=== PATIENT | female | born 1930 | race Caucasian/White ===

== ENCOUNTER 2016-07-10 07:39 | Day surgery (SDC) | payer MEDICARE, OTHER ==
[2016-07-10] VITALS (8 sets, daily range): BP systolic 150–178; BP diastolic 54–87; PULSE 50–66; RESP 11–21; O2SAT 95–100
[~2016-07-10] VITALS: Ht 160 cm; Wt 64.8 kg
[~2016-07-10 07:39] MED LIST: AMLO5TAB2 PO; ATEN50TA PO; BENA20TA PO; DULO20CA18 PO; HYDR25TA4 PO; Levofloxacin 500 mg/100 mL D5W IV ONE
[2016-07-10] MEDS ORDERED: Propofol 10,000 mCg/mL 20 mL Inj ONE (07:40)
[2016-07-10] MEDS ORDERED: fentaNYL-PF 50 mCg/mL 2 mL Inj ONE (07:40)
--- NOTE | 2016-07-10 07:46 | PCM.HPANE ---
Patient Data Surgeon Admitting Provider: Attending Provider:Skye Jones MD Primary Care Physician:Jeyson Harkins MD Other Provider:[facility] Reason for Visit Mixed Incontinence Ht/WT & BMI Height (Feet): 5 Height (Inches): 2 Weight (Kilograms): 65.952 Body Mass Index 26.00 Allergies Coded Allergies: Penicillins (Verified Allergy, Severe, RASH, 07/05/16) fluoxetine (Verified Allergy, Unknown, UNKNOWN, 07/05/16) buspirone (Verified Adverse Reaction, Severe, BLURRY VISION, 07/05/16) citalopram (Verified Adverse Reaction, Severe, SWEATS & INSOMNIA, 07/05/16) imipramine (Verified Adverse Reaction, Severe, "SWEATS", 07/05/16) sertraline (Verified Adverse Reaction, Severe, SLEEPINESS, 07/05/16) simvastatin (Verified Adverse Reaction, Severe, MYALGIAS, 07/05/16) venlafaxine (Verified Adverse Reaction, Severe, 07/05/16) celecoxib (Verified Adverse Reaction, Unknown, DIDN'T HELP, 07/05/16) Past Anesthesia History Anesthesia History: Denies:: Anesthesia Reactions, Malignant Hyperthermia Diabetes History Hx Diabetes?: No MRSA MRSA: No Medications Hypertension Medication: Yes (AMLODIPINE,BENAZEPRIL,HCTZ) Home Meds Incl Beta Vik: Yes (ATENOLOL) Reported Medications Hydrochlorothiazide 25 Mg [id number] Mg PO DAILY 30 Days Ref 0 07/05/16 Duloxetine 20 Mg Capsule.dr20 Mg PO BID Ref 0 07/05/16 Benazepril 20 Mg [id number] Mg PO BID 07/05/16 Atenolol 50 Mg [id number] Mg PO DAILY #30 TABLET Ref 0 07/05/16 Amlodipine 5 Mg Tablet5 Mg PO DAILY Ref 0 07/05/16 History History of ENT Problems?: No Hx of Heart Problems?: Yes Cardiovascular History: Positive for:: Hypertension Denies:: Heart Murmur Hx of Respiratory Problem?: No Respiratory History: Denies:: Use of C-PAP Machine Hx Neurologic Problems?: No Hx of GI Problems?: No Hx of Problems?: Yes Other Pertinent History: 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 Pressure Ulcers Hx Musculoskeletal Problems?: Yes Musculoskeletal History: Positive for:: Joint Replacement (S/P FINGER JOINT REPLACEMENT) Osteoarthritis Hx of Psycho/Social Problems?: Yes Psycho Social History: Positive for:: Anxiety Hx Depression Hx Surgeries?: Yes (FINGER JOINT REPLACEMENT) Hx Any Other Health Problems?: Yes Other History: Denies:: Cancer Endocrine Disease Hospitalization Thyroid Disease Hx Diabetes: No Have You Smoked inLast 12 mo: No Stop/Bang S-Snoring: Do You Snore Loudly: No T-Tired: feel tired, fatigued: No O-Obsered: Observed not breath: No P-Blood Pressure: treated: Yes B- Body Mass Index > 35 kg/m2: No A- Age over 50: Yes N- Neck Large Circumference: No G- Gender Male: No SHUN Total Score: 2 SHUN Risk Assessment: Low Risk, <3 Yes Risk Assessment Category Category 1A: Patient has history of documented sleep apnea, and HAS NOT received any narcotic, sedative or anesthesia administration during this stay. Category 1B: Patient has history of documented sleep apnea, and HAS received any narcotic , sedative or anesthesia administration during this stay Category 2: Patient has SUSPECTED Obstructive Sleep Apnea, and HAS received any narcotic , sedative or anesthesia administration during this stay. Category 3: Patient has SUSPECTED Obstructive Sleep Apnea and HAS NOT received narcotic, sedative or anesthesia administration during this stay. Category 4: Outpatient in Procedural Areas with known sleep apnea or who screen positive for High Risk via the STOP/BANG questionnaire. Exam Exam General Appearance: Alert, Oriented X3, Cooperative, No Acute Distress HEENT/AIRWAY: MP 2 Lungs: Clear to Auscultation, Normal Air Movement Heart: Exam Unremarkable, Regular Rate/Rhythm, No Murmurs/Rubs/Gallops Plan Impression Patient chart reviewed, patient interviewed and anesthestic plan with risks, benefits, and alternatives discussed, and informed consent obtained. ASA Physical Status: ASA2 Mod Systemic Disease Anesthetic Plan: GA Bene/Risks/Altern/Consents: Yes HP Complete Prior to Induction: Yes Phani Art MD Jul 10, 2016 07:46
[2016-07-10] MEDS: Lactated Ringer's 1,000 ML IV SCH ×2 (08:02→09:40)
[2016-07-10] MEDS ORDERED: Lactated Ringer's 500 ML IV PRN (09:51)
[2016-07-10] MEDS ORDERED: Lactated Ringer's 1,000 ML IV SCH (09:51)
[2016-07-10] MEDS ORDERED: hydrALAZINE 20 mg/mL Inj IVPUSH PRN (09:55)
[2016-07-10] MEDS ORDERED: Atropine 0.4 mg/mL Inj IVPUSH PRN (09:55)
[2016-07-10] MEDS ORDERED: HYDROmorphone 1 mg/mL Inj IVPUSH PRN (09:55)
[2016-07-10] MEDS ORDERED: MetoCLOpramide 5 mg/mL 2 mL Inj IVPUSH PRN (09:55)
[2016-07-10] MEDS ORDERED: Dexamethasone 4 mg/mL Inj IVPUSH PRN (09:55)
[2016-07-10] MEDS ORDERED: EPHEDrine Sulfate 50 mg/mL Inj IVPUSH PRN (09:55)
[2016-07-10] MEDS ORDERED: Labetalol 5 mg/mL 4 mL Inj IV PRN (09:55)
[2016-07-10] MEDS ORDERED: Phenylephrine 10,000 mCg/mL Inj IVPUSH PRN (09:55)
[2016-07-10] MEDS ORDERED: Ondansetron 2 mg/mL 2 mL Inj IVPUSH PRN (09:55)
[2016-07-10] MEDS ORDERED: fentaNYL-PF 50 mCg/mL 2 mL Inj IVPUSH PRN (09:55)
[2016-07-10] MEDS ORDERED: Ondansetron 8 mg ODT Tablet PO PRN (10:20)
[2016-07-10] MEDS ORDERED: HYDROcodone-APAP 5-325 mg Tablet PO PRN (10:20)
[2016-07-10] MEDS ORDERED: Phenazopyridine 97.5 mg Tablet PO ONE (10:20)
--- NOTE | 2016-07-10 10:53 | PCM.ANEP1 ---
Post Anesthesia Phase 1 PACU Phase 1 Assessment Vital Signs Vital Signs Date Time Temp Pulse Resp B/P Pulse Ox O2 Delivery O2 Flow Rate FiO2 07/10/16 10:42 36.1 62 12 150/73 96 Room Air 07/10/16 10:35 36.4 61 13 158/71 97 Room Air 07/10/16 10:30 61 12 155/87 98 Room Air 07/10/16 10:26 62 11 160/67 100 Room Air 07/10/16 10:20 62 15 160/66 99 Room Air 07/10/16 10:18 36.1 66 21 157/73 97 Simple Mask 8 07/10/16 08:03 36.0 50 15 152/54 95 Room Air Anesthetic Administered: GA Level of Alertness: Awake, talking ALEJANDRO's with Equal Strength: Yes Pain: No Nausea or Vomiting: No Lungs: Clear to Auscultation, Normal Air Movement Phani Art MD Jul 10, 2016 10:53
--- NOTE | 2016-07-10 12:36 | PCM.ANEP2 ---
Post Anesthesia Evaluation ASA/CMS Post Anesthesia VS in Patient's Normal Range?: Yes Resp Stable; Airway Patent?: Yes CV Function & Hydration Stable: Yes Mental Status Recovered?: Yes Pain control Satisfactory?: Yes N/V Control Satisfactory?: Yes Phani Art MD Jul 10, 2016 12:36
--- NOTE | 2016-07-11 13:34 | OP ---
[address] [address] OPERATIVE REPORT PATIENT: KARLY HERNANDEZ : 1930 MR#: [id number] ADMIT: 07/10/2016 JOB ID: [id number] DATE OF SURGERY: 07/10/2016 PREOPERATIVE DIAGNOSIS(ES): POSTOPERATIVE DIAGNOSIS(ES): DATE OF SERVICE: 07/10/2016 PROCEDURE: Cystoscopy with Macroplastique injection into the urethra. SURGEON: Skye Jones MD ANESTHESIA: General. PREOPERATIVE DIAGNOSIS(ES): Stress urinary continence as well as a lichen sclerosus of the vulva. POSTOPERATIVE DIAGNOSIS(ES): INDICATIONS: The patient is an 85-year-old woman with very bothersome stress urinary incontinence. Abnormal examination with a small introitus and well known to the patient, a lichen sclerosus of the vulva. She elected injection with Macroplastique for attempted treatment of her stress urinary incontinence. PROCEDURE IN DETAIL: After appropriate informed consent was obtained, the patient was brought to the operating room. She received IV antibiotics prior to onset of procedure. SCDs were placed. Adequate general anesthesia was induced. She was carefully placed in the dorsal lithotomy position. All pressure points carefully padded. Cleaned, prepped, and draped in the usual sterile fashion. Rigid scope was introduced into the patient's introitus with the rigid scope and the patient asleep. It was readily visible in the meatus just inside the anterior wall of the vagina which makes this difficult to visualize externally. The scope itself was introduced into her bladder which was surveyed and found to be normal in appearance. We then backed the scope out and injected in three locations a total of 4 cc of Macroplastique. There was good coaptation proximally with this. Once we had done this, the 17-Wolof sheath was introduced gently into the patient's bladder so it could be drained. Irrigated out some small amount of hematuria. The patient tolerated the procedure very well, was awakened and taken in stable condition to the postanesthesia care unit.
== END 2016-07-10 23:59 | disposition home or self-care (01) ==
LOC: SAS 07:39
PROVIDERS: ATTEND Urology
DX: N39.46 Mixed incontinence (principal); N90.4 Leukoplakia of vulva; R35.1 Nocturia; R35.0 Frequency of micturition; I10 Essential (primary) hypertension; M19.90 Unspecified osteoarthritis, unspecified site
CPT/HCPCS: 51715; J3010; J7120; L8606